=== PATIENT | male | born 2000 | race Caucasian/White ===

== ENCOUNTER 2019-12-07 08:40 | Emergency (ER) | payer SELFPAY ==
[2019-12-07 08:46] VITALS: BP 140/84; PULSE 94; RESP 15; TEMP 37.1; O2SAT 97; BMI 30.8
--- NOTE | 2019-12-07 08:49 | ED.EAR ---
HPI - Ear Problem General Chief complaint: Ear Stated complaint: PAIN/PRESSURE IN L EAR,CANNOT CLOSE JAW,HEADACHE Time Seen by Provider: 12/07/19 08:49 Source: patient Mode of arrival: Ambulatory History of Present Illness HPI Narrative: CC: Left earache HPI: The patient is a 19-year-old male who woke up this morning with an earache involving the left ear. He states that his left temporomandibular joint is also painful and has a mild headache. He has had nasal congestion for the last 2 days and earlier in the week had a sore throat for a few days. He denies any fall or injury. He has had no fever chills but has had intermittent sweats last night. He has had no abdominal pain nausea or vomiting. He has postnasal drainage down the back of his throat and has been coughing. He has had no dizziness. The patient smokes cigarettes and drinks alcohol does not use any drugs. He complains that the pain and discomfort is 8/10 in intensity. He has had no abdominal pain nausea vomiting diarrhea or any urinary symptoms. s Related Data Home Medications Medication Instructions Recorded Confirmed loratadine [Claritin] 10 mg PO QDAY #0 11/07/12 Previous Rx's Medication Instructions Recorded cefdinir 300 mg PO BID #14 cap 12/07/19 loratadine 10 mg PO DAILY #14 cap 12/07/19 naproxen [Naprosyn] 500 mg PO BID PRN #20 tab 12/07/19 Allergies Allergy/AdvReac Type Severity Reaction Status Date / Time Penicillins [PENICILLINS] Allergy Unknown Verified 12/07/19 08:46 Review of Systems Review of Systems Narrative: The patient's review of systems were negative except for those mentioned in the history of present illness. Exam Narrative Exam Narrative: PHYSICAL EXAM: CONSTITUTIONAL: Awake, Alert, Oriented, Coherent, Cooperative in NAD. Does not appear toxic or ill. HEAD: AT/NC EENT: PERRL, FROM of eyes, no discharge. No drainage from the ears, Tympanic membranes intact bilaterally, clear EAC left tympanic membrane is erythematous especially around the edges moving into the center of the ear. The right tympanic membrane is pearly white without any dullness. The patient's left auricle is tender to palpation as well as tender to pressure on the tragus and anterior or [place] killer area. He is tender to palpation over the left temporomandibular joint but is able to move his jaw side to side. There is no significant tenderness to palpation over either mastoid prominences. The patient is tender to palpation over the left maxillary sinus. No epistaxis , swollen turbinates with mild congestion. Oral mucosa is moist and pink, tobacco stained tongue. The patient has an extremely sensitive gag unable to visualize the posterior pharynx. NECK: Supple, no obvious JVD, Trachea is midline without stridor, no palpable LN . SPINE: No gross deformity, no palpable tenderness of the cervical, thoracic, lumbar or sacral spine. No CVA tenderness. LUNGS: Clear with symmetrical breath sounds without respiratory distress HEART: Normal heart tones, regular rhythm and rate without murmur. NEURO: Awake, alert, oriented, conversive, no focal facial asymmetry/ cranial nerves II-XII are symmetrical , moves all 4 extremities and is ambulatory Initial Vital Signs Initial Vital Signs: Vital Signs Temperature 98.7 F 12/07/19 08:46 Pulse Rate 94 H 12/07/19 08:46 Respiratory Rate 15 12/07/19 08:46 Blood Pressure 140/84 12/07/19 08:46 Pulse Oximetry 97 12/07/19 08:46 Course Course Course Narrative: 0900: The patient states that he has an allergy to to amoxicillin. He was told that he had a reaction when he was a baby. He does not know what kind of reaction he has. The patient has been administered cefdinir which is a 3rd generation cephalosporin for his otitis media. Was Dr. Downey for pain and discomfort. He states that he is not taken loratadine as the record states Orders Ordered: Discontinued Medications Cefdinir (Omnicef) 300 mg PO NOW ONE Stop: 12/07/19 09:00 Last Admin: 12/07/19 09:23 Dose: 300 mg Documented by: JAMA Diphenhydramine HCl (Benadryl) 25 mg PO NOW ONE Stop: 12/07/19 09:00 Last Admin: 12/07/19 09:18 Dose: 25 mg Documented by: JAMA Ketorolac Tromethamine (Toradol) 30 mg IM NOW ONE Stop: 12/07/19 09:00 Last Admin: 12/07/19 09:18 Dose: 30 mg Documented by: JAMA Vital Signs Vital signs: Vital Signs - 8 hr 12/07/19 08:46 Temperature 98.7 F Pulse Rate 94 H Respiratory Rate 15 Blood Pressure 140/84 Pulse Oximetry 97 Discharge Plan Departure Patient Disposition: Home Clinical Impression: Acute upper respiratory infection Otitis media Qualifiers: Otitis media type: unspecified Laterality: left Qualified Code(s): H66.92 - Otitis media, unspecified, left ear Acute otalgia Qualifiers: Laterality: left Qualified Code(s): H92.02 - Otalgia, left ear Discharge Date/Time: 12/07/19 09:55 Instructions: Middle Ear Infections (Alternative Therapy) Activity Restrictions/Additional Instructions: Follow-up in be recheck by your primary care physician if not improved and better in 48-72 hours. Take Naprosyn 500 mg twice a day for pain and discomfort. Take the cefdinir as prescribed for the next 7 days. Drink plenty of fluids. Prescriptions: New naproxen [Naprosyn] 500 mg tablet 500 mg PO BID PRN (Reason: pain) Qty: 20 RF: 0 cefdinir 300 mg capsule 300 mg PO BID Qty: 14 RF: 0 loratadine 10 mg capsule 10 mg PO DAILY Qty: 14 RF: 0 No Action loratadine [Claritin] 10 MG tablet 10 mg PO QDAY Qty: 0 RF: 0
[2019-12-07] MEDS: diphenhydrAMINE 25 MG TABLET PO (09:18)
[2019-12-07] MEDS: KETOROLAC 60 MG/2 ML VIAL 30 MG IM (09:18)
[2019-12-07] MEDS: CEFDINIR 300 MG CAPSULE PO (09:23)
[2019-12-07 09:54] VITALS: BP 133/70; PULSE 74; RESP 18; O2SAT 100
--- NOTE | 2019-12-07 09:55 | PC.NURSE ---
provided patient with prescription discount card.
== END 2019-12-07 09:55 | disposition home or self-care (01) ==
PROVIDERS: Emergency Provider Emergency Medicine; Family Provider Pediatrics
DX: J06.9 Acute upper respiratory infection, unspecified (principal); H66.92 Otitis media, unspecified, left ear; H92.02 Otalgia, left ear
CPT/HCPCS: 96372; 99283; J1885

== ENCOUNTER 2021-09-17 20:43 | Emergency (ER) | payer OTHER, MEDICAID, SELFPAY ==
[2021-09-17 20:52] VITALS: BP 157/70; PULSE 95; RESP 17; TEMP 37; O2SAT 98; BMI 31.0
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
--- NOTE | 2021-09-17 21:59 | DI.RAD.S_ITS ---
PROCEDURE: XR FOOT RT MIN 3V INDICATIONS: pain TECHNIQUE: 3 views of the foot were acquired. COMPARISON: [facility], CR, XR FOOT 1 OR 2 VIEWS RIGHT, 05/22/2021, 20:51. FINDINGS: Bones: No fractures or dislocations. No suspicious bony lesions. Soft tissues: No tibiotalar joint effusion. Achilles tendon appears normal. IMPRESSION: Unremarkable right foot radiographs Dictated by: Garry Slade M.D. on 09/17/2021 at 22:13 Approved by: Garry Slade M.D. on 09/17/2021 at 22:26
[2021-09-17] MEDS: KETOROLAC 30 MG/ML VIAL IM (22:11)
[2021-09-17 22:42] VITALS: BP 125/73; PULSE 93; RESP 16; O2SAT 97
== END 2021-09-17 22:53 | disposition home or self-care (01) ==
PROVIDERS: Emergency Provider Emergency Medicine; Family Provider Pediatrics
DX: M79.671 Pain in right foot (principal); F17.200 Nicotine dependence, unspecified, uncomplicated
CPT/HCPCS: 73630; 96372; 99283; 99284; J1885

== ENCOUNTER 2022-02-16 16:13 | Emergency (ER) | payer OTHER, MEDICAID, SELFPAY ==
[2022-02-16 16:17] VITALS: BP 135/76; PULSE 83; RESP 20; TEMP 36.6; O2SAT 96
--- NOTE | 2022-02-16 16:47 | DI.RAD.S_ITS ---
PROCEDURE: XR LUMBAR SPINE 2-3V INDICATIONS: severe lumbar pain, history L1 fracture TECHNIQUE: 3 views of the lumbar spine were acquired. COMPARISON: [facility], CT, CT CHEST ABDOMEN PELVIS WITH CONTRAST, 05/22/2021, 21:19. FINDINGS: Bones: Normal bone mineralization. Wedge-shaped L1 compression fracture noted with 50% anterior height loss. Remainder of numeral body heights and alignment is well maintained. Disc spaces are maintained as well. Soft tissues: Overlying bowel gas pattern is normal. No suspicious soft tissue calcifications. IMPRESSION: L1 compression fracture, similar to the prior exam 05/22/2021 Approved by: Garry Slade M.D. on 02/16/2022 at 16:09
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
[2022-02-16 17:53] LABS: Appearance Urine UA CLEAR; Bilirubin Urine UA NEGATIVE (NEGATIVE); Color Urine UA YELLOW; Glucose Urine UA NEGATIVE (Negative); Ketones Urine UA NEGATIVE (NEGATIVE); Leukocyte Esterase Urine UA 2+ (NEGATIVE); Nitrite Urine UA NEGATIVE (Negative); Occult Blood Urine UA NEGATIVE (Negative); Protein Urine UA NEGATIVE (Negative); Urobilinogen Urine UA 0.2 E.U./dL (0.2); pH Urine UA 6.5 (4.5-8.0)
[2022-02-16 18:06] LABS: Bacteria Urine None Seen; Culture Indicated Urine Specimen Cultured; RBC Urine 0-1/HPF (0-5/HPF); WBC Urine 5-10/HPF (0-5/HPF)
== END 2022-02-16 17:38 | disposition home or self-care (01) ==
PROVIDERS: Emergency Provider Emergency Medicine; Family Provider Pediatrics
DX: N10 Acute pyelonephritis (principal)
CPT/HCPCS: 72100; 81001; 81003; 87086; 99283

== ENCOUNTER 2022-06-09 09:56 | Emergency (ER) | payer OTHER, MEDICAID, SELFPAY ==
[2022-06-09 10:29] VITALS: BP 134/81; PULSE 91; RESP 18; TEMP 36.5; O2SAT 98; BMI 34.0
--- NOTE | 2022-06-09 10:35 | DI.RAD.S_ITS ---
PROCEDURE: XR FOOT RT MIN 3V INDICATIONS: pain TECHNIQUE: Three views of the foot were acquired. COMPARISON: [facility], CR, XR FOOT 1 OR 2 VIEWS RIGHT, 05/22/2021, 20:51. [facility], CR, XR FOOT RT MIN 3V, 09/17/2021, 22:02. FINDINGS: Bones: No fractures or dislocations. There is an incompletely imaged cortically based multiloculated well-circumscribed lucency in the medial distal tibial metaphysis similar compared to the prior study. No new bony lesions. Soft tissues: No tibiotalar joint effusion. Achilles tendon appears normal. IMPRESSION: 1. No acute fracture. 2. Stable distal tibial nonossifying fibroma. Dictated by: Rivka Rich M.D. on 06/09/2022 at 11:15 Approved by: Rivka Rich M.D. on 06/09/2022 at 11:19
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
[2022-06-09 11:51] VITALS: BP 132/81; PULSE 90; RESP 16; O2SAT 99
== END 2022-06-09 11:51 | disposition home or self-care (01) ==
PROVIDERS: Emergency Provider Emergency Medicine
DX: S93.601A Unspecified sprain of right foot, initial encounter (principal)
CPT/HCPCS: 73630; 99281; 99283

== ENCOUNTER 2024-01-01 11:33 | Emergency (ER) | payer OTHER, MEDICAID, SELFPAY ==
[2024-01-01 11:45] VITALS: BP 150/80; PULSE 84; RESP 16; TEMP 36.8; O2SAT 97; BMI 30.2
[2024-01-01 12:26] VITALS: PULSE 83; O2SAT 97
[2024-01-01 12:27] VITALS: BP 124/73; PULSE 73; O2SAT 97
[2024-01-01 12:30] VITALS: PULSE 69; RESP 15; O2SAT 97
[2024-01-01 12:31] VITALS: BP 111/52; PULSE 68; RESP 22; O2SAT 96
--- NOTE | 2024-01-01 12:46 | ED_ITS ---
HPI - Chest Pain General Chief Complaint: Chest Pain Stated Complaint: fast hr 148 dizziness chest pain Time Seen by Provider: 01/01/24 12:27 Source: patient and family Mode of arrival: Ambulatory History of Present Illness HPI narrative: Patient is a 23-year-old male who stated that approximately 2 hours ago he was sitting in a car. He states he had a sudden onset of feeling like his heart was beating fast. Was having some chest discomfort and lightheadedness at the time. He did not pass out. He felt like his symptoms lasted approximately 30-45 minutes and then resolved. His girlfriend was in the car with him. She has a EMT. She took his heart rate by pulse. Stated that it was approximately 150 beats per minute. He has never had this happened in the past. He was currently not having any symptoms. Related Data Home Medications Medication Instructions Recorded Confirmed loratadine 10 mg tablet (Claritin) 10 mg PO QDAY ##0 11/07/12 Previous Rx's Medication Instructions Recorded cefdinir 300 mg capsule 300 mg PO BID #14 caps 12/07/19 loratadine 10 mg capsule 10 mg PO DAILY #14 caps 12/07/19 naproxen 500 mg tablet (Naprosyn) 500 mg PO BID PRN pain #20 tabs 12/07/19 cefuroxime axetil 500 mg tablet 500 mg PO BID #14 tabs 02/16/22 hydrocodone 5 mg-acetaminophen 325 1 tab PO Q4-6H PRN pain #10 tabs 02/16/22 mg tablet ketorolac 10 mg tablet 10 mg PO Q6H PRN pain #14 tabs 02/16/22 Allergies Allergy/AdvReac Type Severity Reaction Status Date / Time Penicillins [PENICILLINS] Allergy Unknown Verified 06/09/22 10:29 codeine Allergy Verified 06/09/22 10:29 Review of Systems Constitutional Constitutional: Reports system reviewed and no additional complaints, except as documented Cardiovascular Cardiovascular: Reports system reviewed and no additional complaints, except as documented Respiratory Respiratory: Reports system reviewed and no additional complaints, except as documented Gastrointestinal Gastrointestinal: Reports system reviewed and no additional complaints, except as documented Integumentary/Breasts Skin/Breast: Reports system reviewed and no additional complaints, except as documented Neurologic Neurologic: Reports system reviewed and no additional complaints, except as documented Hematologic/Lymphatic On Anticoagulants: No Patient History Social History Smoking Status: Current every day smoker Smoking Status: Current every day smoker tobacco type: vaping alcohol intake frequency: a few times a week Substance Use Type: does not use Exam Initial Vital Signs Initial Vital Signs: Vital Signs Temperature 98.3 F 01/01/24 11:45 Pulse Rate 84 01/01/24 11:45 Respiratory Rate 16 01/01/24 11:45 Blood Pressure 150/80 H 01/01/24 11:45 Pulse Oximetry 97 01/01/24 11:45 Oxygen Delivery Method Room Air 01/01/24 11:45 Const General: cooperative, well developed and No ill appearing HENTN Head: normal to inspection Resp Effort & Inspection: normal respiratory effort Auscultation: clear to auscultation bilaterally Cardio Rate: regular rate Rhythm: regular rhythm Skin General: no rashes or lesions noted Neuro General: patient alert, patient awake, patient oriented x3 and moves all extremities Course Orders Ordered: ED Orders 01/01/24 11:53 EKG-12 Lead Stat 01/01/24 12:55 Complete Blood Count AUTO DIFF Stat Comprehensive Metabolic Panel Stat Magnesium Stat Vital Signs Vital signs: Vital Signs - 8 hr 01/01/24 11:45 01/01/24 12:26 01/01/24 12:27 Temperature 98.3 F Pulse Rate 84 83 73 Respiratory Rate 16 Blood Pressure 150/80 H Pulse Oximetry 97 97 97 Oxygen Delivery Method Room Air 01/01/24 12:27 01/01/24 12:30 01/01/24 12:31 Temperature Pulse Rate 69 Respiratory Rate 15 Blood Pressure 124/73 111/52 L Pulse Oximetry 97 Oxygen Delivery Method 01/01/24 12:31 01/01/24 13:00 01/01/24 13:00 Temperature Pulse Rate 68 75 Respiratory Rate 22 18 Blood Pressure 106/58 L Pulse Oximetry 96 95 Oxygen Delivery Method MDM - Chest Pain Lab Data Attestation: I reviewed the patient's lab results. 01/01/24 12:55 01/01/24 12:55 Labs: Lab Results 01/01/24 Range/Units 12:55 WBC 8.4 (4.5-11.0) X10^3/uL RBC 4.71 (4.5-5.9) X10^6/uL Hgb 14.8 (13.5-17.5) g/dL Hct 42.7 (41-53) % MCV 90.7 (80-100) fL MCH 31.5 (26-34) PG MCHC 34.7 (30-36) % RDW 12.8 (11.6-14.8) % Plt Count 330 (150-400) X10^3/uL Neut % (Auto) 67.4 (50-75) % Lymph % (Auto) 19.6 L (25-40) % [place] % (Auto) 11.2 (3-14) % Eos % (Auto) 1.3 L (2-4) % Baso % (Auto) 0.5 (0-2) % Neut # (Auto) 5600 (2502-6125) /uL Lymph # (Auto) 1600 (3382-5752) /uL [place] # (Auto) 900 (0-900) /uL Eos # (Auto) 100 (0-450) /uL Baso # (Auto) 0 (0-100) /uL Sodium 142 (137-145) mmol/L Potassium 4.2 (3.4-5.1) mmol/L Chloride 105 (98-107) mmol/L Carbon Dioxide 34 H (22-32) mmol/L BUN 18 (9-20) mg/dL Creatinine 0.83 (0.66-1.25) mg/dL Estimated GFR > 60 (>60) mL/min BUN/Creatinine Ratio 21.7 (6-22) Glucose 88 (70-100) mg/dL Calcium 10.2 (8.4-10.2) mg/dL Magnesium 2.1 (1.6-2.3) mg/dL Total Bilirubin 0.6 (0.2-1.3) mg/dL AST 23 (17-59) IU/L ALT 30 (<50) IU/L Alkaline Phosphatase 83 (38-126) U/L Total Protein 8.2 (6.3-8.2) g/dL Albumin 4.3 (3.5-5.0) g/dL Globulin 3.9 (1.7-4.1) g/dL Albumin/Globulin Ratio 1.1 (1.0-2.8) ECG Data Attestation: I personally reviewed and interpreted this ECG as follows: Interpretation: Sinus rhythm Ventricular rate is 79 Sinus arrhythmia Normal QRS Normal QTC No ST T wave changes MDM Narrative Medical decision making narrative: Patient is asymptomatic and has been asymptomatic since arrival here in the ER. Sinus arrhythmia on the EKG otherwise unremarkable. Labs unremarkable. Discuss this with the patient. We discussed the lack of a definitive diagnosis unless he was being monitored when he was having the symptoms. This the 1st time that this is ever happened. Plan will be to discharge home. Instructions to talk with his primary provider about further evaluation. He was given return precautions. He expressed understanding and agreement. Discharge Plan Departure Patient Disposition: Home Clinical Impression: Palpitations Instructions: DI for Palpitations Activity Restrictions/Additional Instructions: I recommend that you contact your primary care doctor for a follow-up. Continue all medications as directed. Return to the emergency department for new or worsening symptoms. Prescriptions: No Action loratadine [Claritin] 10 MG tablet 10 mg PO QDAY Qty: 0 naproxen [Naprosyn] 500 mg tablet 500 mg PO BID PRN (Reason: pain) Qty: 20 0RF cefdinir 300 mg capsule 300 mg PO BID Qty: 14 0RF loratadine 10 mg capsule 10 mg PO DAILY Qty: 14 0RF hydrocodone-acetaminophen 5-325 mg tablet 1 tab PO Q4-6H PRN (Reason: pain) Qty: 10 0RF ketorolac 10 mg tablet 10 mg PO Q6H PRN (Reason: pain) Qty: 14 0RF cefuroxime axetil 500 mg tablet 500 mg PO BID Qty: 14 0RF Stand Alone Forms: Patient Portal/API
[2024-01-01 13:00] VITALS: BP 106/58; PULSE 75; RESP 18; O2SAT 95
[2024-01-01 13:04] LABS: Add Manual Diff / Slide Review NO; Basophils Absolute Auto 0 /uL (0-100); Basophils Percent Auto 0.5 % (0-2); Eosinophils Absolute Auto 100 /uL (0-450); Eosinophils Percent Auto 1.3 % (2-4); Hematocrit 42.7 % (41-53); Hemoglobin 14.8 g/dL (13.5-17.5); Lymphocytes Absolute Auto 1600 /uL (1100-4500); Lymphocytes Percent Auto 19.6 % (25-40); Mean Corpuscular HGB Conc 34.7 % (30-36); Mean Corpuscular Hemoglobin 31.5 PG (26-34); Mean Corpuscular Volume 90.7 fL (80-100); Monocytes Absolute Auto 900 /uL (0-900); Monocytes Percent Auto 11.2 % (3-14); Neutrophils Absolute Auto 5600 /uL (1500-7000); Neutrophils Percent Auto 67.4 % (50-75); Platelet Count 330 X10^3/uL (150-400); Red Blood Cell Count 4.71 X10^6/uL (4.5-5.9); Red Cell Distribution Width 12.8 % (11.6-14.8); White Blood Cell Count 8.4 X10^3/uL (4.5-11.0)
[2024-01-01 13:17] LABS: Alanine Aminotransferase 30 IU/L (<50); Albumin 4.3 g/dL (3.5-5.0); Albumin Globulin Ratio 1.1 (1.0-2.8); Alkaline Phosphatase 83 U/L (38-126); Aspartate Aminotransferase 23 IU/L (17-59); BUN Creatinine Ratio 21.7 (6-22); Bilirubin Total 0.6 mg/dL (0.2-1.3); Blood Urea Nitrogen 18 mg/dL (9-20); Calcium 10.2 mg/dL (8.4-10.2); Carbon Dioxide 34 mmol/L (22-32); Chloride 105 mmol/L (98-107); Estimated Glomerular Filt Rate > 60 mL/min (>60); Globulin 3.9 g/dL (1.7-4.1); Glucose 88 mg/dL (70-100); HEMOLYSIS < 15 (0-50); Magnesium 2.1 mg/dL (1.6-2.3); Potassium 4.2 mmol/L (3.4-5.1); Sodium 142 mmol/L (137-145); Total Protein 8.2 g/dL (6.3-8.2)
== END 2024-01-01 13:35 | disposition home or self-care (01) ==
PROVIDERS: Emergency Provider Emergency Medicine
DX: R00.2 Palpitations (principal)
CPT/HCPCS: 36415; 80053; 83735; 85025; 93005; 93010; 99283

== ENCOUNTER 2024-08-06 16:15 | Emergency (ER) | payer OTHER, SELFPAY ==
[2024-08-06 16:23] VITALS: BP 124/77; PULSE 74; RESP 18; TEMP 36.4; O2SAT 96; BMI 32.1
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
[2024-08-06 20:10] VITALS: BP 122/66; PULSE 67; RESP 16; O2SAT 97
== END 2024-08-06 20:12 | disposition home or self-care (01) ==
PROVIDERS: Emergency Provider Emergency Medicine
DX: M54.6 Pain in thoracic spine (principal); M54.50 Low back pain, unspecified; M62.830 Muscle spasm of back; V89.2XXA Person injured in unspecified motor-vehicle accident, traffic, initial encounter
CPT/HCPCS: 99281